=== PATIENT | male | born 1990 | race Caucasian/White ===

== ENCOUNTER 2017-07-18 12:42 | Emergency (ER) | payer SELFPAY ==
[~2017-07-18] VITALS: Wt 55.0 kg
[2017-07-18] MEDS ORDERED: SOD CHLORIDE 0.9% 1,000 ML IV STA (13:35)
[2017-07-18] MEDS ORDERED: LORAZEPAM 2 MG INJ IV STA (13:39)
--- NOTE | 2017-07-18 14:29 | RADRPT ---
PROCEDURE: Chest x-ray CLINICAL INDICATION: Chest pain TECHNIQUE: Chest single view COMPARISON: None FINDINGS: The heart is normal in size. The pulmonary vessels are normal in caliber. The lungs are clear. Th e costophrenic angles are sharp. The visualized bony thorax is unremarkable. IMPRESSION: No acute cardiopulmonary disease. Mild hyperinflation RPTAT: HH .Rustam Bustos MD, Date Time Electronically viewed and signed by .Rustam Bustos MD, MD on 07/18/2017 14:28 .W/
[2017-07-18] MEDS ORDERED: LORA-441 PO (14:46)
--- NOTE | 2017-07-18 21:33 | ERD ---
ER Documentation Chief Complaint Date/Time DATE: 07/18/17 TIME: 21:27 Chief Complaint PT BIB AMBULANCE, C/O GENERALIZED WEAKNESS HPI 27-year-old male with history of drug abuse presenting to the emergency department complaining of chest pain and generalized weakness for 1 day. Patient states that he used meth 2 days prior to being seen in yesterday he used Xanax and heroin. He states he has ran out of his Xanax. Patient states that his chest pain is with deep breath. He rates a moderate in severity. He states he is withdrawing and he wants to get off medications completely ROS All systems reviewed and are negative except as per history of present illness. Medications Home Meds Active Scripts Lorazepam* (Ativan*) 0.5 Mg Tablet, 0.5 MG PO BID Y for ANXIETY, #6 TAB Prov:EHSAN BLACK PA-C 07/18/17 PMhx/Soc Medical and Surgical Hx: pt denies Medical Hx, pt denies Surgical Hx Hx Alcohol Use: Yes Hx Substance Use: No Hx Tobacco Use: No Smoking Status: Never smoker Physical Exam Vitals Vital Signs Date Time Temp Pulse Resp B/P Pulse Ox O2 Delivery O2 Flow Rate FiO2 07/18/17 12:55 96.9 102 17 104/64 100 Physical Exam GENERAL: WD/WN, in no apparent distress, non-toxic appearing HENT: NC/AT EYES: Conjunctiva normal NECK: Supple. No meningeal signs PULM: Clear to auscultation bilaterally. Normal labored breathing CV: Regular rate and rhythm, no murmurs GI: Soft, non tender, non distended. Normal bowel sounds BACK: No masses EXT: No clubbing, cyanosis, or edema. NEURO: Awake and Alert SKIN: No petechiae or rashes PSYCH: Normal mood Results 24 hrs Laboratory Tests Test 07/18/17 13:51 Troponin I < 0.012ng/ml Current Medications Medications (Trade) Dose Ordered Sig/Slim Route PRN Reason Start Time Stop Time Status Last Admin Dose Admin Sodium Chloride (NS) 1,000 ml @ 1,000 mls/hr Q1H STAT IV 07/18/17 13:35 07/18/17 14:34 DC 07/18/17 13:56 Lorazepam (Ativan) 1 mg ONCE STAT IV 07/18/17 13:39 07/18/17 13:41 DC 07/18/17 13:57 Procedures/MDM This is a 27-year-old male presenting to the emergency department with meth, heroin withdrawal. Patient used meth 2 days prior to being seen and heroin and Xanax yesterday. patient is mildly tachycardic. IV access established, patient was given Ativan 1 L fluids patient states that he wanted to call the treatment center today however it was close. He promises that he will follow up with a treatment center tomorrow. Patient denies any suicidal or homicidal ideation at this time. He is stable to be discharged home. EKG: read and signed off by myself and Rate/Rhythm: [Normal Sinus Rhythm at 93 bpm] QRS, ST, T-waves: [No changes consistent w/ acute ischemia] Impression: [No evidence of ischemia or arrhythmia] Chest x-ray did not show any evidence of infiltrates, pneumothorax or pleural effusion TROTroponin negative Departure Diagnosis: Primary Impression: Heroin withdrawal Additional Impression: Methamphetamine abuse Condition: Stable Patient Instructions: Understanding Heroin Abuse and Addiction, Treating Heroin Addiction, Understanding Methamphetamine Abuse and Addiction Referrals: SARKIS CRANE,HARISH SANTOS MD,AMBER HERNANDEZ,SIRIA JUDGE,LURDES Villatoro PHD KARIN,SYDNEY SOTOMAYOR,AMMON DE,EROS TREJO,JEET PACE,DECLAN Villatoro [facility] YOU HAVE RECEIVED A MEDICAL SCREENING EXAM AND THE RESULTS INDICATE THAT YOU DO NOT HAVE A CONDITION THAT REQUIRES URGENT TREATMENT IN THE EMERGENCY DEPARTMENT. FURTHER EVALUATION AND TREATMENT OF YOUR CONDITION CAN WAIT UNTIL YOU ARE SEEN IN YOUR DOCTORS OFFICE WITHIN THE NEXT 1-2 DAYS. IT IS YOUR RESPONSIBILITY TO MAKE AN APPOINTMENT FOR FOLOW-UP CARE. IF YOU HAVE A PRIMARY DOCTOR --you should call your primary doctor and schedule an appointment IF YOU DO NOT HAVE A PRIMARY DOCTOR YOU CAN CALL OUR PHYSICIAN REFERRAL HOTLINE AT IF YOU CAN NOT AFFORD TO SEE A PHYSICIAN YOU CAN CHOSE FROM THE FOLLOWING [facility] CLINICS [facility] [address] [facility]. [facility] [address] [facility] [address] [facility] [address] [facility] [address] [facility] [facility]. [facility] [address] [facility]. [facility] YOU HAVE RECEIVED A MEDICAL SCREENING EXAM AND THE RESULTS INDICATE THAT YOU DO NOT HAVE A CONDITION THAT REQUIRES URGENT TREATMENT IN THE EMERGENCY DEPARTMENT. FURTHER EVALUATION AND TREATMENT OF YOUR CONDITION CAN WAIT UNTIL YOU ARE SEEN IN YOUR DOCTORS OFFICE WITHIN THE NEXT 1-2 DAYS. IT IS YOUR RESPONSIBILITY TO MAKE AN APPOINTMENT FOR FOLOW-UP CARE. IF YOU HAVE A PRIMARY DOCTOR --you should call your primary doctor and schedule and appointment IF YOU DO NOT HAVE A PRIMARY DOCTOR YOU CAN CALL OUR PHYSICIAN REFERRAL HOTLINE AT . IF YOU CAN NOT AFFORD TO SEE A PHYSICIAN YOU CAN CHOSE FROM THE FOLLOWING [facility] INSTITUTIONS: [facility] [address] [place] [address] [facility] [address] [place] [address] [facility] [address] [place] [address] [facility] URGENT CARE/SPECIALTIES Additional Instructions: FOLLOW UP WITH YOUR PRIMARY CARE PHYSICIAN TOMORROW.Return to this facility if you are not improving as expected. Take all medicines as directed. Return to this facility if you are not improving as expected. EHSAN BLACK PA-C Jul 18, 2017 21:33
== END 2017-07-18 16:46 | disposition home or self-care (01) ==
LOC: FTE 12:42
DX: F11.23 Opioid dependence with withdrawal (principal); F15.10 Other stimulant abuse, uncomplicated
CPT/HCPCS: 36415; 71010; 84484; 93005; 96374; 99285; J2060; J7030

== ENCOUNTER 2019-06-23 17:54 | Inpatient (IN) | payer OTHER ==
[~2019-06-23] VITALS: Ht 180.3 cm; Wt 57.1 kg
[~2019-06-23 17:54] MED LIST: LORA-441 PO
[2019-06-23 22:00] VITALS: BP 125/67; PULSE 85; RESP 18
[2019-06-23 22:13] VITALS: Ht 180.3 cm; Wt 57.1 kg
[2019-06-24] MEDS ORDERED: ONDANSETRON 4 MG INJ IV PRN ×2 (01:00→02:30)
[2019-06-24] MEDS: DEXTROSE 5%-0.45% NACL 1,000 ML IV SCH ×3 (01:15→21:39)
[2019-06-24 02:00] VITALS: BP 122/68; PULSE 73; RESP 18
[2019-06-24] MEDS ORDERED: LORAZEPAM 2 MG INJ IV PRN ×3 (02:30→20:30)
[2019-06-24] MEDS ORDERED: ALBUTEROL/IPRATROPIUM (NEB) 3 ML AMP HHN PRN (02:30)
[2019-06-24] MEDS ORDERED: ACETAMINOPHEN 325 MG TAB PO PRN (02:30)
[2019-06-24] MEDS ORDERED: NACL 0.9% 3 ML SYG IV SCH (02:30)
--- NOTE | 2019-06-24 06:31 | HP ---
Date/Time of Note Date/Time of Note DATE: 06/24/19 TIME: 06:24 Assessment/Plan VTE Prophylaxis SCD applied (from Nsg): Yes Pharmacological prophylaxis: NA/contraindicated Pharm contraindication: low risk/ambulating Lines/Catheters IV Catheter Type (from Nrsg): Saline Lock Assessment/Plan Assessment/Plan 1. Seizure, secondary to benzo withdrawal -Patient was trying to wean himself off of benzo for the past 2 days -Status post treatment with 2 mg of Ativan at [facility] prior to transfer -Head CT was negative for acute findings -Monitor for withdrawal -Treat with as needed Ativan -Consider neurology consult 2. Left eyebrow abrasion: Secondary to seizure -Head CT negative for acute findings at [facility] 3. Polysubstance abuse: On methadone -We will place consult with Dr. Leon HPI/ROS Admit Date/Time Admit Date/Time Jun 23, 2019 at 21:52 Hx of Present Illness Patient is a 29-year-old male with a history of polysubstance abuse on methadone who presented to [facility] after having had seizure. Patient is on methadone and for the past 2 days he has been trying to wean himself off benzod iazepine. He started having a shaking episodes. Patient initially went to [facility] for withdrawal in an attempt to seek help. While he was there, he had a tonic-clonic seizure. Patient reported similar seizure-like activity a year ago after he attempted again to wean himself of benzo. He was then transferred by paramedics to [facility]. He sustained abrasion to left eyebrow. At [place], head CT was negative for acute findings. He was initially somehow tachycardic with a heart rate of around 100. He was treated with 2 mg of Ativan with improvement of tachycardia to 70s. Labs shows metabolic acidosis with bicarb of 17. Creatinine 1.1 otherwise basic labs within acceptable range. Patient was transferred to [facility] for insurance reason. PMH/Family/Social Past Medical History Medical History: other (See HPI) Medications Current Medications Dextrose/Sodium Chloride 1,000 ml @ 100 mls/hr Q10H IV Last administered on 06/24/19at 01:15; Admin Dose 100 MLS/HR; Start 06/24/19 at 01:00 Ondansetron HCl (Zofran Inj) 4 mg Q6H PRN IV NAUSEA AND/OR VOMITING Last administered on 06/24/19at 05:56; Admin Dose 4 MG; Start 06/24/19 at 01:00 IV Flush (NS 3 ml) 3 ml PER PROTOCOL IV ; Start 06/24/19 at 02:30 Acetaminophen (Tylenol Tab) 650 mg Q6H PRN PO .PAIN 1-3 OR TEMP; Start 06/24/19 at 02:30 Albuterol/ Ipratropium (Duoneb) 3 ml Q2H RESP THERAPY PRN HHN SHORTNESS OF BREATH; Start 06/24/19 at 02:30 Lorazepam (Ativan) 1 mg Q6H PRN IV anxiety; Start 06/24/19 at 02:30 Lorazepam (Ativan) 2 mg Q1H PRN IV seizure; Start 06/24/19 at 02:30 Coded Allergies: No Known Allergies (Verified Allergy, Unknown, 06/23/19) NKA Past Surgical History Past Surgical Hx: other (See HPI) Family History Significant Family History: no pertinent family hx Social History Alcohol Use: other Smoking Status: Current every day smoker Drug Use: other (On methadone. Trying to wean himself off benzodiazepine) Exam/Review of Systems Vital Signs Vitals Vital Signs Date Temp Pulse Resp B/P (MAP) Pulse Ox O2 O2 Flow FiO2 Time Delivery Rate 06/24/19 98.3 73 18 122/68 96 Room Air 02:00 (86) Intake and Output 06/23/19 06/23/19 06/24/19 1515:00 23:00 07:00 IntakeIntake Total 300 ml OutputOutput Total 200 ml BalanceBalance 100 ml Exam Constitutional: alert, oriented, well developed Head: normocephalic, atraumatic Eyes: EOMI, PERRL Respiratory: clear to auscultation, normal air movement Cardiovascular: regular rate and rhythm, nl pulses Gastrointestinal: soft, non-tender Extremities: normal pulses Neurological: nl mental status, nl speech, nl strength BEAR RODRÍGUEZ MD Jun 24, 2019 06:31
[2019-06-24] MEDS ORDERED: METHADONE 10 MG TAB PO ONE (07:30)
[2019-06-24 08:09] VITALS: BP 122/75; PULSE 55; RESP 17
[2019-06-24] MEDS ORDERED: METHADONE 10 MG TAB PO SCH ×2 (08:30→11:00)
--- NOTE | 2019-06-24 13:53 | PN ---
Date/Time of Note Date/Time of Note DATE: 06/24/19 TIME: 13:41 Assessment/Plan VTE Prophylaxis SCD applied (from Nsg): Yes Pharmacological prophylaxis: NA/contraindicated Pharm contraindication: low risk/ambulating Lines/Catheters IV Catheter Type (from Nrsg): Saline Lock Assessment/Plan Hospital Course Assessment and plan 1. 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 He also reports trying to check into [place] [facility] however had seizure prior to it. CT scan of the head was negative for any acute findings We will start benzodiazepine taper 2. Left eyebrow abrasion Monitor 3. History of polysubstance abuse Patient does follow-up with methadone clinic as outpatient. Pain management consult to follow Disposition and plan. Continue with seizure precautions. Start on benzodiazepine taper. Discussed plan of care with Dr. Nesbitt Result Diagram: 06/24/19 0723 06/24/19 0723 Results 24hrs Laboratory Tests Test 06/24/19 07:23 White Blood Count 12.5 H Red Blood Count 4.47 L Hemoglobin 13.0 L Hematocrit 39.3 L Mean Corpuscular Volume 87.9 Mean Corpuscular Hemoglobin 29.1 Mean Corpuscular Hemoglobin Concent 33.1 Red Cell Distribution Width 12.9 Platelet Count 199 Mean Platelet Volume 8.9 Immature Granulocytes % 0.300 Neutrophils % 77.8 H Lymphocytes % 10.1 L Monocytes % 11.5 H Eosinophils % 0.1 Basophils % 0.2 Nucleated Red Blood Cells % 0.0 Immature Granulocytes # 0.040 H Neutrophils # 9.7 H Lymphocytes # 1.3 Monocytes # 1.4 H Eosinophils # 0.0 Basophils # 0.0 Nucleated Red Blood Cells # 0.0 Sodium Level 140 Potassium Level 3.6 Chloride Level 104 Carbon Dioxide Level 27 Anion Gap 9 Blood Urea Nitrogen 18 Creatinine 1.54 H Est Glomerular Filtrat Rate mL/min 54 L Glucose Level 109 Calcium Level 9.4 Total Bilirubin 0.5 Direct Bilirubin 0.00 Indirect Bilirubin 0.5 Aspartate Amino Transf (AST/SGOT) 40 Alanine Aminotransferase (ALT/SGPT) 35 Alkaline Phosphatase 70 Total Protein 6.6 Albumin 4.0 Globulin 2.60 Albumin/Globulin Ratio 1.53 Subjective 24 Hr Interval Summary Free Text/Dictation no further reports of seizure. States he has some anxiety and depression at times Exam/Review of Systems Exam Vitals Vital Signs Date Temp Pulse Resp B/P (MAP) Pulse Ox O2 O2 Flow FiO2 Time Delivery Rate 06/24/19 98.3 55 17 122/75 97 08:09 (91) 06/24/19 Room Air 02:00 Intake and Output 06/23/19 06/23/19 06/24/19 1515:00 23:00 07:00 IntakeIntake Total 800 ml OutputOutput Total 200 ml BalanceBalance 600 ml Constitutional: alert, oriented Head: normocephalic Respiratory: clear to auscultation, normal air movement Cardiovascular: regular rate and rhythm Gastrointestinal: soft, non-tender Musculoskeletal: nl extremities to inspection Extremities: normal pulses Neurological: DAIRY NUTRITIONIST II-XII intact, nl mental status, nl speech Results Results 24hrs Laboratory Tests Test 06/24/19 07:23 White Blood Count 12.5 H Red Blood Count 4.47 L Hemoglobin 13.0 L Hematocrit 39.3 L Mean Corpuscular Volume 87.9 Mean Corpuscular Hemoglobin 29.1 Mean Corpuscular Hemoglobin Concent 33.1 Red Cell Distribution Width 12.9 Platelet Count 199 Mean Platelet Volume 8.9 Immature Granulocytes % 0.300 Neutrophils % 77.8 H Lymphocytes % 10.1 L Monocytes % 11.5 H Eosinophils % 0.1 Basophils % 0.2 Nucleated Red Blood Cells % 0.0 Immature Granulocytes # 0.040 H Neutrophils # 9.7 H Lymphocytes # 1.3 Monocytes # 1.4 H Eosinophils # 0.0 Basophils # 0.0 Nucleated Red Blood Cells # 0.0 Sodium Level 140 Potassium Level 3.6 Chloride Level 104 Carbon Dioxide Level 27 Anion Gap 9 Blood Urea Nitrogen 18 Creatinine 1.54 H Est Glomerular Filtrat Rate mL/min 54 L Glucose Level 109 Calcium Level 9.4 Total Bilirubin 0.5 Direct Bilirubin 0.00 Indirect Bilirubin 0.5 Aspartate Amino Transf (AST/SGOT) 40 Alanine Aminotransferase (ALT/SGPT) 35 Alkaline Phosphatase 70 Total Protein 6.6 Albumin 4.0 Globulin 2.60 Albumin/Globulin Ratio 1.53 Medications Medication Current Medications Dextrose/Sodium Chloride 1,000 ml @ 100 mls/hr Q10H IV Last administered on 06/24/19at 11:23; Admin Dose 100 MLS/HR; Start 06/24/19 at 01:00 Ondansetron HCl (Zofran Inj) 4 mg Q6H PRN IV NAUSEA AND/OR VOMITING Last administered on 06/24/19at 05:56; Admin Dose 4 MG; Start 06/24/19 at 01:00 IV Flush (NS 3 ml) 3 ml PER PROTOCOL IV ; Start 06/24/19 at 02:30 Acetaminophen (Tylenol Tab) 650 mg Q6H PRN PO .PAIN 1-3 OR TEMP; Start 06/24/19 at 02:30 Albuterol/ Ipratropium (Duoneb) 3 ml Q2H RESP THERAPY PRN HHN SHORTNESS OF BREATH; Start 06/24/19 at 02:30 Lorazepam (Ativan) 1 mg Q6H PRN IV anxiety; Start 06/24/19 at 02:30 Lorazepam (Ativan) 2 mg Q1H PRN IV seizure; Start 06/24/19 at 02:30 Methadone HCl (Methadone) 60 mg DAILY PO ; Start 06/25/19 at 09:00 Methadone HCl (Methadone) 60 mg ONCE PO Last administered on 06/24/19at 11:17; Admin Dose 60 MG; Start 06/24/19 at 11:00; Stop 06/24/19 at 16:00 KATIA HERNANDEZ NP Jun 24, 2019 13:52
[2019-06-24 14:50] VITALS: BP 115/67; PULSE 51; RESP 18
[2019-06-24 20:28] VITALS: BP 113/70; PULSE 47; RESP 18
[2019-06-24 21:00] VITALS: PULSE 68
[2019-06-24] MEDS ORDERED: DIAZEPAM 5 MG TAB PO SCH (21:00)
[2019-06-24] MEDS: clonAZEPAM 0.5 MG TAB PO SCH (21:39)
[2019-06-25 02:35] VITALS: BP 103/62; PULSE 51; RESP 16
[2019-06-25 04:20] VITALS: PULSE 62
[2019-06-25] MEDS: DEXTROSE 5%-0.45% NACL 1,000 ML IV SCH ×3 (06:07→18:39)
[2019-06-25 08:04] VITALS: BP 107/56; PULSE 56; RESP 16
[2019-06-25] MEDS: clonAZEPAM 0.5 MG TAB PO SCH ×2 (08:50→20:21)
[2019-06-25] MEDS: METHADONE 10 MG TAB PO SCH (08:50)
--- NOTE | 2019-06-25 09:19 | PN ---
Date/Time of Note Date/Time of Note DATE: 06/25/19 TIME: 09:15 Assessment/Plan VTE Prophylaxis Risk score (from Ns)>0 risk: 4 SCD applied (from Ns): Yes Pharmacological prophylaxis: NA/contraindicated Pharm contraindication: low risk/ambulating Lines/Catheters IV Catheter Type (from Nrsg): Peripheral IV Urinary Cath still in place: No Assessment/Plan Hospital Course Assessment and plan 1. 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 He also reports trying to check into [place] [facility] however had seizure prior to it. CT scan of the head was negative for any acute findings benzodiazepine taper - f/u Dr. Leon recommendations 2. Left eyebrow abrasion Monitor 3. History of polysubstance abuse Patient does follow-up with methadone clinic as outpatient. Pain management consult to follow 4. Anxiety/suspect hx major depression telepsych consult eval pending Disposition and plan. ~Consult is pending. Patient did report trying to go to [place] [facility] prior to this admission. Will get social services technician/case management coordinator involved to assist with possible rehab transfer once medically stable Discussed plan of care with Dr. Nesbitt Result Diagram: 06/25/19 0530 06/25/19 0530 Results 24hrs Laboratory Tests Test 06/25/19 05:30 White Blood Count 9.6 # Red Blood Count 4.40 L Hemoglobin 12.8 L Hematocrit 38.7 L Mean Corpuscular Volume 88.0 Mean Corpuscular Hemoglobin 29.1 Mean Corpuscular Hemoglobin Concent 33.1 Red Cell Distribution Width 12.7 Platelet Count 176 Mean Platelet Volume 8.5 Immature Granulocytes % 0.200 Neutrophils % 61.6 Lymphocytes % 25.3 Monocytes % 11.9 H Eosinophils % 0.6 Basophils % 0.4 Nucleated Red Blood Cells % 0.0 Immature Granulocytes # 0.020 Neutrophils # 5.9 Lymphocytes # 2.4 Monocytes # 1.1 H Eosinophils # 0.1 Basophils # 0.0 Nucleated Red Blood Cells # 0.0 Sodium Level 143 Potassium Level 4.2 Chloride Level 106 Carbon Dioxide Level 30 Anion Gap 7 Blood Urea Nitrogen 14 Creatinine 1.32 H Est Glomerular Filtrat Rate mL/min > 60 Glucose Level 97 Calcium Level 9.2 Phosphorus Level 3.8 Magnesium Level 2.2 Subjective 24 Hr Interval Summary Free Text/Dictation no reports of seizure. comfortable at present Exam/Review of Systems Exam Vitals Vital Signs Date Temp Pulse Resp B/P (MAP) Pulse Ox O2 O2 Flow FiO2 Time Delivery Rate 06/25/19 98.0 56 16 107/56 97 08:04 (73) 06/24/19 Room Air 02:00 Intake and Output 06/24/19 06/24/19 06/25/19 1515:00 23:00 07:00 IntakeIntake Total 1100 ml 1240 ml 700 ml OutputOutput Total 1000 ml 700 ml 200 ml BalanceBalance 100 ml 540 ml 500 ml Exam Constitutional: alert, oriented Head: normocephalic Respiratory: clear to auscultation, normal air movement Cardiovascular: regular rate and rhythm Gastrointestinal: soft, non-tender Musculoskeletal: nl extremities to inspection Extremities: normal pulses Neurological: RUBY ON RAILS ENGINEER II-XII intact, nl mental status, nl speech Results Results 24hrs Laboratory Tests Test 06/25/19 05:30 White Blood Count 9.6 # Red Blood Count 4.40 L Hemoglobin 12.8 L Hematocrit 38.7 L Mean Corpuscular Volume 88.0 Mean Corpuscular Hemoglobin 29.1 Mean Corpuscular Hemoglobin Concent 33.1 Red Cell Distribution Width 12.7 Platelet Count 176 Mean Platelet Volume 8.5 Immature Granulocytes % 0.200 Neutrophils % 61.6 Lymphocytes % 25.3 Monocytes % 11.9 H Eosinophils % 0.6 Basophils % 0.4 Nucleated Red Blood Cells % 0.0 Immature Granulocytes # 0.020 Neutrophils # 5.9 Lymphocytes # 2.4 Monocytes # 1.1 H Eosinophils # 0.1 Basophils # 0.0 Nucleated Red Blood Cells # 0.0 Sodium Level 143 Potassium Level 4.2 Chloride Level 106 Carbon Dioxide Level 30 Anion Gap 7 Blood Urea Nitrogen 14 Creatinine 1.32 H Est Glomerular Filtrat Rate mL/min > 60 Glucose Level 97 Calcium Level 9.2 Phosphorus Level 3.8 Magnesium Level 2.2 Medications Medication Current Medications Dextrose/Sodium Chloride 1,000 ml @ 100 mls/hr Q10H IV Last administered on 06/25/19at 08:55; Admin Dose 100 MLS/HR; Start 06/24/19 at 01:00 Ondansetron HCl (Zofran Inj) 4 mg Q6H PRN IV NAUSEA AND/OR VOMITING Last administered on 06/24/19at 05:56; Admin Dose 4 MG; Start 06/24/19 at 01:00 IV Flush (NS 3 ml) 3 ml PER PROTOCOL IV ; Start 06/24/19 at 02:30 Acetaminophen (Tylenol Tab) 650 mg Q6H PRN PO .PAIN 1-3 OR TEMP; Start 06/24/19 at 02:30 Albuterol/ Ipratropium (Duoneb) 3 ml Q2H RESP THERAPY PRN HHN SHORTNESS OF BREATH; Start 06/24/19 at 02:30 Lorazepam (Ativan) 2 mg Q1H PRN IV seizure; Start 06/24/19 at 02:30 Methadone HCl (Methadone) 60 mg DAILY PO Last administered on 06/25/19at 08:50; Admin Dose 60 MG; Start 06/25/19 at 09:00 Lorazepam (Ativan) 1 mg Q4 PRN IV anxiety; Start 06/24/19 at 20:30 Clonazepam (Klonopin) 2 mg BID PO Last administered on 06/25/19at 08:50; Admin Dose 2 MG; Start 06/24/19 at 21:00 KATIA HERNANDEZ NP Jun 25, 2019 09:19
[2019-06-25 14:36] VITALS: BP 111/52; PULSE 52; RESP 16
[2019-06-25 20:43] VITALS: BP 116/67; PULSE 50; RESP 16
[2019-06-26 02:41] VITALS: BP 124/80; PULSE 56; RESP 16
[2019-06-26] MEDS: DEXTROSE 5%-0.45% NACL 1,000 ML IV SCH ×2 (05:00→15:12)
[2019-06-26 07:36] VITALS: BP 139/79; PULSE 50; RESP 16
[2019-06-26] MEDS: METHADONE 10 MG TAB PO SCH (08:32)
[2019-06-26] MEDS: clonAZEPAM 0.5 MG TAB PO SCH ×2 (08:32→21:53)
[2019-06-26 14:19] VITALS: BP 118/67; PULSE 58; RESP 16
--- NOTE | 2019-06-26 15:14 | PN ---
Date/Time of Note Date/Time of Note DATE: 06/26/19 TIME: 15:12 Assessment/Plan VTE Prophylaxis Risk score (from Ns)>0 risk: 3 SCD applied (from Ns): Yes Pharmacological prophylaxis: NA/contraindicated Pharm contraindication: other Lines/Catheters IV Catheter Type (from [facility]): Peripheral IV Urinary Cath still in place: No Assessment/Plan Hospital Course SUBJECTIVE: Denies any headache. Denies any nausea. OBJECTIVE: Physical Exam General: Thin, frail looking, 29 year-old male lying in bed in no apparent distress. HEENT: Normocephalic. Abrasion over the left eyebrow. Eyes: Anicteric sclerae, conjunctivae clear. ENT: Nasal septum midline, oral mucosa moist. Neck supple, no JVD noticed. Respiratory: Bilaterally clear breath sounds. No use of accessory muscles of respiration. No adventitious breath sounds. Cardiovascular: S1, S2 heard. Regular rate and rhythm. Abdomen: Soft, nontender, and nondistended. Bowel sounds positive in all 4 quadrants. Genitourinary: Deferred. Extremities: No cyanosis, no clubbing, no edema. Peripheral pulses palpable. Neurologic: The patient is awake and alert. Skin: Normal skin turgor. No skin rashes. Labs & Vitals per chart ASSESSMENT & PLAN 29-year-old male with history of polysubstance abuse on methadone who presented to [facility] secondary to having a seizure. The patient was trying to wean himself off benzodiazepines that probably resulted in seizures. 1. Benzodiazepine withdrawal seizure. Continue seizure precautions. Continue tapering dose of benzodiazepines. 2. Substance abuse, on methadone. Being followed by pain management team. 3. Left eyebrow abrasion. Head CT negative for any acute findings. 4. Fluids, electrolytes, and nutrition. Regular diet. 5. DVT prophylaxis. Bilateral SCDs. 6. Plan. Continue tapering dose of benzodiazepines. Physical therapy evaluation because of underlying deconditioning. Discharge plan is to discharge the patient home once clinically stable. The patient was seen in collaboration with Dr. Florez. Result Diagram: 06/26/19 0621 06/26/19 0621 Results 24hrs Laboratory Tests Test 06/26/19 06:21 White Blood Count 7.5 # Red Blood Count 4.27 L Hemoglobin 12.5 L Hematocrit 37.4 L Mean Corpuscular Volume 87.6 Mean Corpuscular Hemoglobin 29.3 Mean Corpuscular Hemoglobin Concent 33.4 Red Cell Distribution Width 12.8 Platelet Count 163 Mean Platelet Volume 9.0 Immature Granulocytes % 0.300 Neutrophils % 67.5 Lymphocytes % 19.7 Monocytes % 10.9 Eosinophils % 1.2 Basophils % 0.4 Nucleated Red Blood Cells % 0.0 Immature Granulocytes # 0.020 Neutrophils # 5.1 Lymphocytes # 1.5 Monocytes # 0.8 Eosinophils # 0.1 Basophils # 0.0 Nucleated Red Blood Cells # 0.0 Sodium Level 142 Potassium Level 4.0 Chloride Level 106 Carbon Dioxide Level 30 Anion Gap 6 Blood Urea Nitrogen 19 Creatinine 1.16 Est Glomerular Filtrat Rate mL/min > 60 Glucose Level 94 Calcium Level 9.0 Exam/Review of Systems Exam Vitals Vital Signs Date Temp Pulse Resp B/P (MAP) Pulse Ox O2 O2 Flow FiO2 Time Delivery Rate 06/26/19 98.0 58 16 118/67 98 14:19 (84) 06/24/19 Room Air 02:00 Intake and Output 06/25/19 06/25/19 06/26/19 1515:00 23:00 07:00 IntakeIntake Total 800 ml 2100 ml 1000 ml OutputOutput Total 200 ml 1000 ml 3000 ml BalanceBalance 600 ml 1100 ml -2000 ml Results Results 24hrs Laboratory Tests Test 06/26/19 06:21 White Blood Count 7.5 # Red Blood Count 4.27 L Hemoglobin 12.5 L Hematocrit 37.4 L Mean Corpuscular Volume 87.6 Mean Corpuscular Hemoglobin 29.3 Mean Corpuscular Hemoglobin Concent 33.4 Red Cell Distribution Width 12.8 Platelet Count 163 Mean Platelet Volume 9.0 Immature Granulocytes % 0.300 Neutrophils % 67.5 Lymphocytes % 19.7 Monocytes % 10.9 Eosinophils % 1.2 Basophils % 0.4 Nucleated Red Blood Cells % 0.0 Immature Granulocytes # 0.020 Neutrophils # 5.1 Lymphocytes # 1.5 Monocytes # 0.8 Eosinophils # 0.1 Basophils # 0.0 Nucleated Red Blood Cells # 0.0 Sodium Level 142 Potassium Level 4.0 Chloride Level 106 Carbon Dioxide Level 30 Anion Gap 6 Blood Urea Nitrogen 19 Creatinine 1.16 Est Glomerular Filtrat Rate mL/min > 60 Glucose Level 94 Calcium Level 9.0 Medications Medication Current Medications Dextrose/Sodium Chloride 1,000 ml @ 100 mls/hr Q10H IV Last administered on 06/26/19at 05:00; Admin Dose 100 MLS/HR; Start 06/24/19 at 01:00 Ondansetron HCl (Zofran Inj) 4 mg Q6H PRN IV NAUSEA AND/OR VOMITING Last administered on 06/24/19at 05:56; Admin Dose 4 MG; Start 06/24/19 at 01:00 IV Flush (NS 3 ml) 3 ml PER PROTOCOL IV ; Start 06/24/19 at 02:30 Acetaminophen (Tylenol Tab) 650 mg Q6H PRN PO .PAIN 1-3 OR TEMP; Start 06/24/19 at 02:30 Albuterol/ Ipratropium (Duoneb) 3 ml Q2H RESP THERAPY PRN HHN SHORTNESS OF BREATH; Start 06/24/19 at 02:30 Lorazepam (Ativan) 2 mg Q1H PRN IV seizure; Start 06/24/19 at 02:30 Methadone HCl (Methadone) 60 mg DAILY PO Last administered on 06/26/19at 08:32; Admin Dose 60 MG; Start 06/25/19 at 09:00 Lorazepam (Ativan) 1 mg Q4 PRN IV anxiety; Start 06/24/19 at 20:30 Clonazepam (Klonopin) 2 mg BID PO Last administered on 06/26/19at 08:32; Admin Dose 2 MG; Start 06/24/19 at 21:00 CHAN REBOLLEDO NP Jun 26, 2019 15:14
[2019-06-26] MEDS ORDERED: BISACODYL (EC) 5 MG TAB PO PRN (15:30)
[2019-06-26 20:21] VITALS: BP 127/76; PULSE 52; RESP 18
[2019-06-26] MEDS: POLYETHYLENE GLYCOL 17 GM PACKET PO SCH (21:00)
[2019-06-27 01:44] VITALS: BP 121/60; PULSE 52; RESP 20
[2019-06-27] MEDS: DEXTROSE 5%-0.45% NACL 1,000 ML IV SCH ×2 (02:02→07:55)
[2019-06-27] MEDS: clonAZEPAM 0.5 MG TAB PO SCH ×3 (05:56→21:54)
[2019-06-27 08:00] VITALS: BP 122/75; PULSE 48; RESP 14
[2019-06-27 08:49] VITALS: PULSE 61
[2019-06-27] MEDS: METHADONE 10 MG TAB PO SCH (08:51)
[2019-06-27] MEDS: POLYETHYLENE GLYCOL 17 GM PACKET PO SCH ×2 (08:51→21:00)
--- NOTE | 2019-06-27 12:07 | PN ---
Date/Time of Note Date/Time of Note DATE: 06/27/19 TIME: 12:04 Assessment/Plan VTE Prophylaxis Risk score (from Nsg)>0 risk: 3 SCD applied (from Nsg): Yes Pharmacological prophylaxis: NA/contraindicated Pharm contraindication: other Lines/Catheters IV Catheter Type (from Nrsg): Peripheral IV Urinary Cath still in place: No Assessment/Plan Hospital Course SUBJECTIVE: Denies any headache. Denies any nausea. Night staff confiscated vape containing marijuana oil, lighters, cigarettes, and containers of Xanax OBJECTIVE: Physical Exam General: Thin, frail looking, 29 year-old male lying in bed in no apparent distress. HEENT: Normocephalic. Abrasion over the left eyebrow. Eyes: Anicteric sclerae, conjunctivae clear. ENT: Nasal septum midline, oral mucosa moist. Neck supple, no JVD noticed. Respiratory: Bilaterally clear breath sounds. No use of accessory muscles of respiration. No adventitious breath sounds. Cardiovascular: S1, S2 heard. Regular rate and rhythm. Abdomen: Soft, nontender, and nondistended. Bowel sounds positive in all 4 quadrants. Genitourinary: Deferred. Extremities: No cyanosis, no clubbing, no edema. Peripheral pulses palpable. Neurologic: The patient is awake and alert. Skin: Normal skin turgor. No skin rashes. Labs & Vitals per chart ASSESSMENT & PLAN 29-year-old male with history of polysubstance abuse on methadone who presented to [facility] secondary to having a seizure. The patient was trying to wean himself off benzodiazepines that probably resulted in seizures. 1. Benzodiazepine withdrawal seizure. Continue seizure precautions. Continue tapering dose of benzodiazepines. 2. Substance abuse, on methadone. Being followed by pain management team. 3. Left eyebrow abrasion. Head CT negative for any acute findings. 4. Fluids, electrolytes, and nutrition. Regular diet. 5. DVT prophylaxis. Bilateral SCDs. 6. Plan. Continue tapering dose of benzodiazepines. Physical therapy evaluation because of underlying deconditioning. Discharge plan is to discharge the patient home once clinically stable. The patient was seen in collaboration with Dr. Florez. Result Diagram: 06/27/19 0735 06/27/19 0735 Results 24hrs Laboratory Tests Test 06/27/19 07:35 White Blood Count 6.9 Red Blood Count 4.54 L Hemoglobin 13.0 L Hematocrit 39.3 L Mean Corpuscular Volume 86.6 Mean Corpuscular Hemoglobin 28.6 L Mean Corpuscular Hemoglobin Concent 33.1 Red Cell Distribution Width 12.8 Platelet Count 182 Mean Platelet Volume 9.0 Immature Granulocytes % 0.300 Neutrophils % 70.1 Lymphocytes % 19.2 Monocytes % 8.6 Eosinophils % 1.5 Basophils % 0.3 Nucleated Red Blood Cells % 0.0 Immature Granulocytes # 0.020 Neutrophils # 4.8 Lymphocytes # 1.3 Monocytes # 0.6 Eosinophils # 0.1 Basophils # 0.0 Nucleated Red Blood Cells # 0.0 Sodium Level 143 Potassium Level 3.9 Chloride Level 105 Carbon Dioxide Level 31 Anion Gap 7 Blood Urea Nitrogen 12 Creatinine 0.76 Est Glomerular Filtrat Rate mL/min > 60 Glucose Level 99 Calcium Level 9.1 Phosphorus Level 3.1 Magnesium Level 1.7 Exam/Review of Systems Exam Vitals Vital Signs Date Temp Pulse Resp B/P (MAP) Pulse Ox O2 O2 Flow FiO2 Time Delivery Rate 06/27/19 61 99 08:49 06/27/19 98.7 14 122/75 08:00 (91) 06/24/19 Room Air 02:00 Intake and Output 06/26/19 06/26/19 06/27/19 1515:00 23:00 07:00 IntakeIntake Total 1240 ml 1800 ml 1750 ml OutputOutput Total 550 ml 1800 ml BalanceBalance 690 ml 0 ml 1750 ml Results Results 24hrs Laboratory Tests Test 06/27/19 07:35 White Blood Count 6.9 Red Blood Count 4.54 L Hemoglobin 13.0 L Hematocrit 39.3 L Mean Corpuscular Volume 86.6 Mean Corpuscular Hemoglobin 28.6 L Mean Corpuscular Hemoglobin Concent 33.1 Red Cell Distribution Width 12.8 Platelet Count 182 Mean Platelet Volume 9.0 Immature Granulocytes % 0.300 Neutrophils % 70.1 Lymphocytes % 19.2 Monocytes % 8.6 Eosinophils % 1.5 Basophils % 0.3 Nucleated Red Blood Cells % 0.0 Immature Granulocytes # 0.020 Neutrophils # 4.8 Lymphocytes # 1.3 Monocytes # 0.6 Eosinophils # 0.1 Basophils # 0.0 Nucleated Red Blood Cells # 0.0 Sodium Level 143 Potassium Level 3.9 Chloride Level 105 Carbon Dioxide Level 31 Anion Gap 7 Blood Urea Nitrogen 12 Creatinine 0.76 Est Glomerular Filtrat Rate mL/min > 60 Glucose Level 99 Calcium Level 9.1 Phosphorus Level 3.1 Magnesium Level 1.7 Medications Medication Current Medications Dextrose/Sodium Chloride 1,000 ml @ 100 mls/hr Q10H IV Last administered on 06/27/19at 02:02; Admin Dose 100 MLS/HR; Start 06/24/19 at 01:00 Ondansetron HCl (Zofran Inj) 4 mg Q6H PRN IV NAUSEA AND/OR VOMITING Last administered on 06/24/19at 05:56; Admin Dose 4 MG; Start 06/24/19 at 01:00 IV Flush (NS 3 ml) 3 ml PER PROTOCOL IV ; Start 06/24/19 at 02:30 Acetaminophen (Tylenol Tab) 650 mg Q6H PRN PO .PAIN 1-3 OR TEMP; Start 06/24/19 at 02:30 Albuterol/ Ipratropium (Duoneb) 3 ml Q2H RESP THERAPY PRN HHN SHORTNESS OF BREATH; Start 06/24/19 at 02:30 Lorazepam (Ativan) 2 mg Q1H PRN IV seizure; Start 06/24/19 at 02:30 Methadone HCl (Methadone) 60 mg DAILY PO Last administered on 06/27/19at 08:51; Admin Dose 60 MG; Start 06/25/19 at 09:00 Lorazepam (Ativan) 1 mg Q4 PRN IV anxiety; Start 06/24/19 at 20:30 Clonazepam (Klonopin) 1 mg Q8 PO Last administered on 06/27/19at 05:56; Admin Dose 1 MG; Start 06/26/19 at 22:00 Polyethylene Glycol (Miralax) 17 gm BID PO ; Start 06/26/19 at 21:00 Bisacodyl (Dulcolax) 10 mg DAILY PRN PO CONSTIPATION; Start 06/26/19 at 15:30 CHAN REBOLLEDO NP Jun 27, 2019 12:07
[2019-06-27 14:00] VITALS: BP 119/73; PULSE 52; RESP 14
[2019-06-27 20:00] VITALS: BP 119/75; PULSE 50; RESP 17
[2019-06-28 02:30] VITALS: BP 125/73; PULSE 52; RESP 17
[2019-06-28] MEDS: clonAZEPAM 0.5 MG TAB PO SCH ×2 (06:05→13:11)
[2019-06-28] MEDS: METHADONE 10 MG TAB PO SCH (08:12)
[2019-06-28] MEDS: POLYETHYLENE GLYCOL 17 GM PACKET PO SCH (08:12)
[2019-06-28 08:24] VITALS: BP 142/83; PULSE 54; RESP 16
--- NOTE | 2019-06-28 10:28 | PDOCDIS ---
Discharge Instructions CONDITION [id number] Patient Condition: [id number] Stable HOME CARE INSTRUCTIONS: [id number] Diet Instructions: [id number] Regular FOLLOW UP/APPOINTMENTS Follow-up Plan Follow-up with drug rehabilitation. OTHER ORDERS: Other Orders: 1. Take a regular diet. 2. Resume activities as tolerated. 3. Abstain from using recreational drugs. 4. Please follow-up with your rehab facility [facility]. CHAN REBOLLEDO NP Jun 28, 2019 10:28
--- NOTE | 2019-06-28 10:33 | DS ---
Date/Time of Note Date/Time of Note DATE: 06/28/19 TIME: 10:30 Discharge Summary Admission/Discharge Info Admit Date/Time Jun 23, 2019 at 21:52 Discharge Date/Time Discharge Diagnosis 1. Benzodiazepine withdrawal seizure. 2. Polysubstance abuse. 3. Left eyebrow abrasion. 4. Moderate protein calorie malnutrition. Patient Condition: Stable Consults 1. Zhao Leon MD, Pain Management. Hx of Present Illness This is a 29-year-old male with history of polysubstance abuse on methadone who presented to [facility] secondary to having a seizure. The patient was trying to wean himself off benzodiazepines that probably resulted in seizures. Hospital Course The patient was admitted to inpatient setting. He was maintained on seizure precautions. He was started on a tapering dose of benzodiazepines. The patient also has a history of polysubstance abuse including opioids (heroin). Therefore, the patient was placed on methadone therapy as per pain management team. The patient had a left eyebrow abrasion secondary to the seizure episode. The patient's brain CT scan that was done at the transferring facility was negative for any acute findings. The patient was also noticed to be deconditioned. Therefore, the patient was evaluated by physical therapy and physical therapy recommended no skilled physical therapy needs. During his stay at [facility], the nursing staff confiscated vape containing marijuana oil, lighters, cigarettes, and containers of Xanax from the patient's room. It is highly likely that the patient was abusing these substances while in-house. The patient was maintained on tapering dose of benzodiazepines. The patient's condition is currently stable to be released to be followed up with outpatient rehabilitation facility at the earliest. The patient has a facility of his choice and the patient will return to this facility at the earliest. The patient was also incidentally noticed to be malno urished. The patient was advised on dietary supplements. The patient was evaluated by registered dietitian. Discharge Instructions 1. Take a regular diet. 2. Resume activities as tolerated. 3. Abstain from using recreational drugs. 4. Please follow-up with your rehab facility [facility]. The patient verbalized understanding of his discharge instructions. At this time I would like to thank Dr. Leon for seeing the patient and providing clinical recommendations. The patient was seen in collaboration with Dr. Florez. Home Meds Active Scripts Lorazepam* (Ativan*) 0.5 Mg Tablet, 0.5 MG PO BID PRN for ANXIETY, #6 TAB Prov:EHSAN BLACK PA-C 07/18/17 Follow-up Plan Follow-up with drug rehabilitation. Primary Care Provider Care Physician No Primary Time spent on discharge: > 30 minutes Pending Labs Laboratory Tests Test 06/28/19 05:26 White Blood Count 7.2 10^3/ul (4.8-10.8) Red Blood Count 4.52 10^6/ul (4.70-6.10) Hemoglobin 13.0 g/dl (14.0-18.0) Hematocrit 39.5 % (42.0-52.0) Mean Corpuscular Volume 87.4 fl (82.0-101.0) Mean Corpuscular Hemoglobin 28.8 pg (29.0-33.0) Mean Corpuscular Hemoglobin Concent 32.9 g/dl (32.0-37.0) Red Cell Distribution Width 12.9 % (11.5-14.5) Platelet Count 191 10^3/UL (140-415) Mean Platelet Volume 8.9 fl (7.4-10.4) Immature Granulocytes % 0.300 % (0.001-0.429) Neutrophils % 54.7 % (39.0-77.0) Lymphocytes % 30.3 % (15.0-51.0) Monocytes % 10.9 % (0.0-11.0) Eosinophils % 3.2 % (0.0-7.0) Basophils % 0.6 % (0.0-2.0) Nucleated Red Blood Cells % 0.0 /100WBC (0.0-0.0) Immature Granulocytes # 0.020 10^3/ul (0.0-0.031) Neutrophils # 3.9 10^3/ul (1.6-7.5) Lymphocytes # 2.2 10^3/ul (0.8-2.9) Monocytes # 0.8 10^3/ul (0.3-0.9) Eosinophils # 0.2 10^3/ul (0.0-0.5) Basophils # 0.0 10^3/ul (0.0-0.1) Nucleated Red Blood Cells # 0.0 10^3/ul (0.0-0.0) Sodium Level 144 mmol/L (135-144) Potassium Level 4.2 mmol/L (3.5-5.1) Chloride Level 103 mmol/L (97-110) Carbon Dioxide Level 33 mmol/L (21-31) Anion Gap 8 (5-13) Blood Urea Nitrogen 13 mg/dl (7-20) Creatinine 0.73 mg/dl (0.61-1.24) Est Glomerular Filtrat Rate mL/min > 60 mL/min (>60) Glucose Level 90 mg/dl (70-220) Calcium Level 9.3 mg/dl (8.4-10.2) Phosphorus Level 4.0 mg/dl (2.5-4.9) Magnesium Level 1.9 mg/dl (1.7-2.5) CHAN REBOLLEDO NP Jun 28, 2019 10:33
[2019-06-28 14:00] VITALS: BP 108/65; PULSE 57; RESP 16
== END 2019-06-28 16:11 | disposition home or self-care (01) | DRG 101 ==
LOC: PP2 21:52
PROVIDERS: ADMIT Hospitalist; ATTEND Hospitalist
DX: G40.509 Epileptic seizures related to external causes, not intractable, without status epilepticus (principal); F13.239 Sedative, hypnotic or anxiolytic dependence with withdrawal, unspecified; E44.0 Moderate protein-calorie malnutrition; Z68.1 Body mass index [BMI] 19.9 or less, adult; F17.200 Nicotine dependence, unspecified, uncomplicated; F41.9 Anxiety disorder, unspecified; F32.9 Major depressive disorder, single episode, unspecified; S00.212A Abrasion of left eyelid and periocular area, initial encounter; X58.XXXA Exposure to other specified factors, initial encounter
CPT/HCPCS: 80048; 80053; 83735; 84100; 85025; 97161; J2405; J7042